=== PATIENT | female | born 1960 | race Caucasian/White ===

== ENCOUNTER 2016-09-07 12:31 | Emergency (ER) | payer OTHER ==
[2016-09-07 12:38] VITALS: BP 153/83; PULSE 80; TEMP 98.2; BMI 24.7
[2016-09-07] MEDS ORDERED: KETOROLAC TROMETHAMINE 60 MG/2 ML VIAL IM ONE (12:56)
[2016-09-07] MEDS ORDERED: KETOROLAC TROMETHAMINE 60 MG/2 ML VIAL ONE (13:13)
--- NOTE | 2016-09-07 13:18 | PDOC ---
History of Present Illness - General Chief Complaint: Back Pain Stated Complaint: PAIN Time Seen by Provider: 09/07/16 12:43 History Source: Patient Exam Limitations: No Limitations - History of Present Illness Initial Comments: 09/07/16 13:00 56 y/o female presents to the emergency room with complaints of low back pain radiating to her left leg for the past 5 days worsened with standing and relieved with rest. Chay. Sunday who prescribed her Flexeril after having a negative CT of her spine and leg. Patient has had minimal relief with the Flexeril and Motrin and decided come to [facility] [facility] emergency department for further evaluation. Patient has had low back pain in the past but not to this extent. 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 Patient denies any numbness tingling, weakness, abdominal pain, lower extremity edema, skin, discoloration. Occurred: reports: other Severity: reports: mild Pain Location: reports: lower extremity Method of Injury: Yes: unknown Modifying Factors: improves with: None Loss of Consciousness: no loss of consciousness Associated Symptoms (Fall): trouble walking Past History - Travel Traveled outside of the country in the last 30 days: No Close contact w/someone who was outside of country & ill: No - Past Medical History Allergies/Adverse Reactions: Allergies Allergy/AdvReac Type Severity Reaction Status Date / Time No Known Allergies Allergy Verified 09/07/16 12:33 Home Medications: Ambulatory Orders Atorvastatin Ca [Lipitor] 20 mg PO HS #30 tablet 11/11/15 Clopidogrel Bisulfate [Plavix -] 75 mg PO DAILY #30 tablet 11/11/15 Metoprolol Succinate [Toprol XL -] 50 mg PO DAILY #30 tab.sr.24h 11/11/15 Nitroglycerin Sublingual [Nitrostat -] 0.4 mg SL Q5M PRN #100 tab 11/11/15 Ibuprofen [Motrin -] 600 mg PO TID PRN #21 tablet 01/17/16 Methocarbamol [Robaxin -] 500 mg PO BID PRN #14 tablet 01/17/16 HTN: Yes - Surgical History Abdominal Surgery: Yes Appendectomy: Yes - Psycho/Social/Smoking Cessation Hx Anxiety: No Suicidal Ideation: No Smoking History: Never smoked Have you smoked in the past 12 months: No Number of Cigarettes Smoked Daily: 0 If you are a former smoker, when did you quit?: while still a teenager Hx Alcohol Use: Yes Drug/Substance Use Hx: No Substance Use Type: Alcohol Patient Lives Alone: No Review of Systems - Review of Systems Able to Perform ROS?: Yes Constitutional: No: Symptoms Reported HEENTM: No: Symptoms Reported Musculoskeletal: Yes: Back Pain, Muscle Pain (left posterior leg) Integumentary: No: Symptoms Reported Neurological: No: Symptoms reported Hematologic/Lymphatic: No: Symptoms Reported *Physical Exam - Vital Signs Last Vital Signs Temp Pulse Resp BP Pulse Ox 98.2 F 80 18 153/83 100 09/07/16 12:33 09/07/16 12:33 09/07/16 12:33 09/07/16 12:33 09/07/16 12:33 - Physical Exam General Appearance: Yes: Nourished, Appropriately Dressed. No: Apparent Distress Respiratory/Chest: positive: Lungs Clear, Normal Breath Sounds. negative: Respiratory Distress, Accessory Muscle Use Gastrointestinal/Abdominal: positive: Soft. negative: Tenderness Musculoskeletal: positive: Other (left sciatica tenderness). negative: Vertebral Tenderness (no midline tenderness) Extremity: positive: Normal Capillary Refill. negative: Pedal Edema Integumentary: positive: Normal Color, Warm, Moist Neurologic: positive: Motor Strength 5/5 (ambulatory) Medical Decision Making - Medical Decision Making 09/07/16 13:25 Patient will continue a low back pain with left-sided sciatica despite being on Flexeril and Motrin. Patient had no neural focal deficits but did have tenderness to the left sciatica without midline tenderness to the vertebral column. Patient with likely sciatica pain, unresolved. Patient will be given a dose of Toradol IM and then discharged home with Percocet along with the Flexeril. Patient also be given referral to an orthopedist. *DC/Admit/Observation/Transfer Diagnosis at time of Disposition: Sciatic nerve pain Qualifiers: Laterality: left Qualified Code(s): M54.32 - Sciatica, left side - Discharge Dispostion Disposition: HOME Condition at time of disposition: Good - Referrals Referrals: Neva Perez MD [Primary Care Provider] - Yuval Angulo MD [Staff Physician] - - Patient Instructions Printed Discharge Instructions: DI for Sciatica, Sciatica (Alternative Therapy) Additional Instructions: I recommend that you take percocet with flexeril but do not operate any heavy machinery while taking it. please follow-up with referred orthopedist. Please read over information enclosed in regards to sciatica.
== END 2016-09-07 13:35 | disposition home or self-care (01) ==
LOC: JERFT 12:31
PROC: 3E0233Z Introduction of Anti-inflammatory into Muscle, Percutaneous Approach (ICD-10-PCS; principal; 2016-09-07)
DX: M54.42 Lumbago with sciatica, left side (principal); I10 Essential (primary) hypertension
CPT/HCPCS: 99281-25

== ENCOUNTER 2018-11-12 12:25 | Emergency (ER) | payer OTHER ==
[2018-11-12 12:32] VITALS: BP 157/82; PULSE 67; TEMP 98.3; BMI 25.3
[2018-11-12] MEDS ORDERED: CYCLOBENZAPRINE HCL 10 MG TABLET (FP) PO ONE (13:46)
[2018-11-12] MEDS ORDERED: KETOROLAC TROMETHAMINE 60 MG/2 ML VIAL IM ONE (13:46)
[2018-11-12] MEDS ORDERED: KETOROLAC TROMETHAMINE 60 MG/2 ML VIAL ONE (14:02)
[2018-11-12] MEDS ORDERED: CYCLOBENZAPRINE HCL 10 MG TABLET (FP) ONE (14:02)
--- NOTE | 2018-11-12 14:32 | PDOC ---
History of Present Illness - General Chief Complaint: Back Pain Stated Complaint: BACK PAIN Time Seen by Provider: 11/12/18 13:05 History Source: Patient Exam Limitations: No Limitations - History of Present Illness Initial Comments: 11/12/18 14:38 58 y/o female presents to the ED with c/o rt trapezius aching discomfort x 3 days worse with movement. Pt denies chest pain., rash, sob, abd pain, fever, cough, headache, or dizziness. Is this a multiple visit Asthma Patient?: No Associated Symptoms: reports: other (right back pain) Past History - Travel Traveled outside of the country in the last 30 days: No Close contact w/someone who was outside of country & ill: No - Past Medical History Allergies/Adverse Reactions: Allergies Allergy/AdvReac Type Severity Reaction Status Date / Time No Known Allergies Allergy Verified 11/12/18 12:33 Home Medications: Ambulatory Orders Cyclobenzaprine HCl [Flexeril -] 5 mg PO TID PRN #12 tablet 11/12/18 Ibuprofen [Motrin -] 600 mg PO TID PRN #21 tablet 11/12/18 Lisinopril [Prinivil -] 40 mg PO DAILY 11/12/18 COPD: No HTN: Yes - Surgical History Abdominal Surgery: Yes Appendectomy: Yes Cardiac Surgery: Yes (CARDIAC CATH) - Immunization History Immunization Up to Date: Yes - Suicide/Smoking/Psychosocial Hx Smoking History: Never smoked Have you smoked in the past 12 months: No Number of Cigarettes Smoked Daily: 0 If you are a former smoker, when did you quit?: while still a teenager Information on smoking cessation initiated: No Hx Alcohol Use: No Drug/Substance Use Hx: No Substance Use Type: Alcohol Patient Lives Alone: No Lives with/in: spouse/SO Review of Systems - Review of Systems Able to Perform ROS?: Yes Constitutional: No: Symptoms Reported Cardiac (ROS): No: Symptoms Reported ABD/GI: No: Symptoms Reported : No: Symptoms Reported Musculoskeletal: Yes: Back Pain Integumentary: No: Symptoms Reported Neurological: No: Symptoms reported *Physical Exam - Vital Signs Last Vital Signs Temp Pulse Resp BP Pulse Ox 98.3 F 67 17 157/82 97 11/12/18 12:27 11/12/18 12:27 11/12/18 12:27 11/12/18 12:27 11/12/18 12:27 - Physical Exam General Appearance: Yes: Nourished, Appropriately Dressed. No: Apparent Distress HEENT: negative: Pale Conjunctivae Neck: positive: Supple, Tender lateral (right trapezius) Respiratory/Chest: positive: Lungs Clear, Normal Breath Sounds. negative: Respiratory Distress, Accessory Muscle Use Cardiovascular: positive: Regular Rhythm, Regular Rate. negative: Murmur Gastrointestinal/Abdominal: positive: Soft. negative: Tenderness Musculoskeletal: positive: Other (right trapezius ). negative: Vertebral Tenderness Extremity: positive: Normal Inspection Integumentary: positive: Normal Color, Warm, Moist Neurologic: positive: Normal Mood/Affect, Motor Strength 5/5 (ambulatory) ED Treatment Course - RADIOLOGY Radiology Studies Ordered: Category Date Time Status CHEST - PA [RAD] Stat Radiology 11/12/18 13:46 Completed - Medications Given in the ED: ED Medications Discontinued Medications Generic Name Dose Route Start Last Admin Trade Name Freq PRN Reason Stop Dose Admin Cyclobenzaprine HCl 5 mg 11/12/18 13:46 11/12/18 14:06 Flexeril - PO 11/12/18 13:47 5 mg ONCE ONE Administration Ketorolac Tromethamine 60 mg 11/12/18 13:46 11/12/18 14:06 Toradol Injection - IM 11/12/18 13:47 60 mg ONCE ONE Administration Medical Decision Making - Medical Decision Making 11/12/18 14:05 CC: rt sided back pain x 3 days worse with movement. Pt denies chest pain, sob, or dizziness, Pt denies abd pain Exam: Rt trapezius tenderness Plan: flexeril, toradol. and chest xray 11/12/18 14:38 Cxr -. pt feeling better. sent home with meds *DC/Admit/Observation/Transfer Diagnosis at time of Disposition: Back pain - Discharge Dispostion Disposition: HOME Condition at time of disposition: Improved - Prescriptions Prescriptions: Cyclobenzaprine HCl [Flexeril -] 5 mg PO TID PRN #12 tablet PRN Reason: Back Pain Ibuprofen [Motrin -] 600 mg PO TID PRN #21 tablet PRN Reason: Pain - Referrals Referrals: Neva Perez MD [Primary Care Provider] - - Patient Instructions Printed Discharge Instructions: DI for Thoracic Back Pain Additional Instructions: Please take medication as needed for pain. Please avoid movements which trigger your discomfort. - Post Discharge Activity
--- NOTE | 2018-11-12 16:29 | EKG ---
Test Reason : Blood Pressure : / mmHG Vent. Rate : 064 BPM Atrial Rate : 064 BPM P-R Int : 126 ms QRS Dur : 084 ms QT Int : 436 ms P-R-T Axes : 029 036 040 degrees QTc Int : 449 ms NORMAL SINUS RHYTHM SEPTAL INFARCT , AGE UNDETERMINED ABNORMAL ECG WHEN COMPARED WITH ECG OF 11-NOV-2015 15:27, SEPTAL INFARCT IS NOW PRESENT Confirmed by Lio Villegas ([id number]) on 11/12/2018 4:28:34 PM Referred By: Confirmed By:Lio Villegas
== END 2018-11-12 15:05 | disposition home or self-care (01) ==
LOC: JER 12:25
PROC: 3E0233Z Introduction of Anti-inflammatory into Muscle, Percutaneous Approach (ICD-10-PCS; principal; 2018-11-12)
DX: M54.6 Pain in thoracic spine (principal)
CPT/HCPCS: 71045-TC-FY; 93005; 93010; 99281-25

== ENCOUNTER 2019-02-21 12:23 | Emergency (ER) | payer OTHER ==
[2019-02-21 12:28] VITALS: BMI 26.4
--- NOTE | 2019-02-21 12:59 | PDOC ---
History of Present Illness - General Chief Complaint: Cold Symptoms Stated Complaint: flu Symptoms Time Seen by Provider: 02/21/19 12:40 History Source: Patient - History of Present Illness Initial Comments: 02/21/19 13:36 58-year-old female complaining of cough and fever for the last 5 days. Denies nausea, vomiting, diarrhea, abdominal pain. Denies flu vaccine this season. Npast medical history of hypertension, cardiac history and stent 3 years ago 02/21/19 14:13 Past History - Past Medical History Allergies/Adverse Reactions: Allergies Allergy/AdvReac Type Severity Reaction Status Date / Time No Known Allergies Allergy Verified 02/21/19 12:28 Home Medications: Ambulatory Orders Cyclobenzaprine HCl [Flexeril -] 5 mg PO TID PRN #12 tablet 11/12/18 Ibuprofen [Motrin -] 600 mg PO TID PRN #21 tablet 11/12/18 Lisinopril [Prinivil -] 40 mg PO DAILY 11/12/18 Benzonatate [Tessalon Pearls -] 100 mg PO TID PRN #21 capsule 02/21/19 Ibuprofen 400 mg PO BID PRN #20 tablet 02/21/19 Sodium Chloride/Sodium Bicarb [Nasa Mist Saline [place]] 1 ml NS QID #1 spray COPD: No HTN: Yes - Surgical History Abdominal Surgery: Yes Appendectomy: Yes Cardiac Surgery: Yes (CARDIAC CATH) - Immunization History Immunization Up to Date: Yes - Psycho Social/Smoking Cessation Hx Smoking History: Never smoked Have you smoked in the past 12 months: No Number of Cigarettes Smoked Daily: 0 If you are a former smoker, when did you quit?: while still a teenager Hx Alcohol Use: No Drug/Substance Use Hx: No Substance Use Type: Alcohol Review of Systems - Review of Systems Able to Perform ROS?: Yes Is the patient limited Lithuanian proficient: No *Physical Exam - Vital Signs Last Vital Signs Temp Pulse Resp BP Pulse Ox 98.7 F 78 18 173/90 H 100 02/21/19 12:25 02/21/19 12:25 02/21/19 12:25 02/21/19 12:25 02/21/19 12:25 - Physical Exam General Appearance: Yes: Appropriately Dressed HEENT: positive: Pharynx Normal, Nasal Congestion Respiratory/Chest: positive: Lungs Clear, Normal Breath Sounds Cardiovascular: positive: Regular Rhythm, Regular Rate Extremity: positive: Normal Capillary Refill, Normal Inspection, Normal Range of Motion Integumentary: positive: Normal Color, Dry, Warm Neurologic: positive: Fully Oriented, Alert, Normal Mood/Affect Medical Decision Making - Medical Decision Making 02/21/19 13:53 FLu like symptoms P: supportive care 02/21/19 14:18 all d/c instructions and strict return precautions reviewed with patient via [place] interpreter Discharge - Discharge Information Problems reviewed: Yes Clinical Impression/Diagnosis: Flu-like symptoms, Cough Disposition: HOME - Additional Discharge Information Prescriptions: Benzonatate [Tessalon Pearls -] 100 mg PO TID PRN #21 capsule PRN Reason: Cough Ibuprofen 400 mg PO BID PRN #20 tablet PRN Reason: Pain Sodium Chloride/Sodium Bicarb [Nasa Mist Saline [place]] 1 ml NS QID #1 spray - Follow up/Referral - Patient Discharge Instructions Patient Printed Discharge Instructions: DI for Common Cold Additional Instructions: Drink plenty of fluids. It is likely that you have the flu. Since you have been having symptoms for 5 days medication for flu does not really help. 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 Return to the emergency room if symptoms worsen. Beber mucho lquido. Es probable que tenga gripe. Dado que arora tenido sntomas sonia 5 graves, los medicamentos para la gripe realmente no ayudan. Puede probar algunos de los medicamentos de venta nick, incluidos Mucinex, TheraFlu eTC Administre Tylenol cada 4 horas segn sea necesario para la fiebre. Administre ibuprofeno y luego cada 6 horas segn sea necesario para la fiebre. Ludwin un seguimiento con martinez pediatra lo antes posible. Regrese a la janna de emergencias si los sntomas empeoran. - Post Discharge Activity Work/Back to School Note: Back to Work
[2019-02-21] MEDS ORDERED: ACETAMINOPHEN 500 MG TABLET (FP) PO ONE (13:05)
[2019-02-21] MEDS ORDERED: SODIUM CHLORIDE FOR INHALATION 3 ML VIAL.NEB IH ONE (13:05)
[2019-02-21] MEDS ORDERED: ACETAMINOPHEN 325 MG TABLET (FP) ONE ×2 (13:34→13:36)
[2019-02-21 14:19] VITALS: BP 164/98; PULSE 67; TEMP 98.1
== END 2019-02-21 14:23 | disposition home or self-care (01) ==
LOC: JERFT 12:23
PROC: 3E0F7GC Introduction of Other Therapeutic Substance into Respiratory Tract, Via Natural or Artificial Opening (ICD-10-PCS; principal; 2019-02-21)
DX: J11.1 Influenza due to unidentified influenza virus with other respiratory manifestations (principal); I25.10 Atherosclerotic heart disease of native coronary artery without angina pectoris; I10 Essential (primary) hypertension; Z95.5 Presence of coronary angioplasty implant and graft
CPT/HCPCS: 71046-TC-FY; 94640; 99281-25

== ENCOUNTER 2022-08-15 04:39 | Day surgery (SDC) | payer OTHER ==
[2022-08-10 14:09] VITALS: BMI 24.7
[2022-08-15 09:21] VITALS: TEMP 97
[2022-08-15 09:38] VITALS: BP 108/65; PULSE 62; RESP 18
== END 2022-08-15 09:55 | disposition home or self-care (01) ==
LOC: JASU-ENDO 04:39
PROVIDERS: ATTEND Student in an Organized Health Care Education/Training Program
PROC: 0DB68ZX Excision of Stomach, Via Natural or Artificial Opening Endoscopic, Diagnostic (ICD-10-PCS; 2022-08-15)
PROC: 0DB78ZX Excision of Stomach, Pylorus, Via Natural or Artificial Opening Endoscopic, Diagnostic (ICD-10-PCS; 2022-08-15)
PROC: 0DB68ZX Excision of Stomach, Via Natural or Artificial Opening Endoscopic, Diagnostic (ICD-10-PCS; principal; 2022-08-15 08:30)
DX: K29.50 Unspecified chronic gastritis without bleeding (principal); K31.7 Polyp of stomach and duodenum
CPT/HCPCS: 88305-TC; 88342-TC

== ENCOUNTER 2022-08-23 11:29 | Emergency (ER) | payer OTHER ==
[2022-08-23 11:41] VITALS: BP 133/74; PULSE 84; RESP 18; TEMP 99.4; BMI 27.0
[2022-08-23] MEDS ORDERED: KETOROLAC TROMETHAMINE 30 MG/1 ML VIAL ONE (12:27)
[2022-08-23] MEDS ORDERED: KETOROLAC TROMETHAMINE 30 MG/1 ML VIAL IM ONE (12:36)
== END 2022-08-23 13:47 | disposition home or self-care (01) ==
LOC: JERFT 11:29
PROC: 3E0233Z Introduction of Anti-inflammatory into Muscle, Percutaneous Approach (ICD-10-PCS; principal; 2022-08-23)
DX: R50.9 Fever, unspecified (principal); R53.83 Other fatigue; R51.9 Headache, unspecified; U07.1 COVID-19
CPT/HCPCS: 0241U-QW; 87651; 99284-25

== ENCOUNTER 2022-09-22 08:26 | Observation (INO) | payer OTHER ==
[2022-09-22 10:43] LABS: BASO % 0.8 % (0-2.0); HEMATOCRIT 38.4 % (32.4-45.2); HEMOGLOBIN 12.8 GM/dL (10.7-15.3); LYMPH % 29.5 % (8-40); MCH 29.9 pg (25.7-33.7); MCHC 33.4 g/dl (32.0-36.0); MEAN CELL VOLUME 89.7 fl (80-96); MEAN PLT VOLUME 10.6 fl (7.5-11.1); MONO % 7.8 % (3.8-10.2); NEUT % 59.9 % (42.8-82.8); PLATELET COUNT 189 10^3/uL (134-434); RBC 4.28 M/mm3 (3.60-5.2); RDW 14.2 % (11.6-15.6)
[2022-09-22 10:47] LABS: EPI CELLS 36 /uL (0-25.1); HYALINE CASTS 0 /uL (0-3.1); PH,URINE 6.5 (5.0-8.0); URINE APPEARANCE CLEAR; URINE BACTERIA 365 /uL (0-1359); URINE BILIRUBIN NEGATIVE (NEGATIVE); URINE COLOR YELLOW; URINE GLUCOSE (UA) NEGATIVE (NEGATIVE); URINE KETONE NEGATIVE (NEGATIVE); URINE LEUK ESTERASE 1+ (NEGATIVE); URINE NITRITE NEGATIVE (NEGATIVE); URINE PROTEIN NEGATIVE (NEGATIVE); URINE RBC 8 /uL (0-23.9); URINE UROBILINOGEN 0.2 mg/dL (0.2-1.0); URINE WBC 20 /uL (0-25.8)
[2022-09-22 11:03] LABS: POTASSIUM 4.5 mmol/L (3.5-5.1)
[2022-09-22 11:04] LABS: CALCIUM 9.4 mg/dL (8.5-10.1)
[2022-09-22 11:05] LABS: ALBUMIN 3.6 g/dl (3.4-5.0); BLOOD UREA NITROGEN 13.1 mg/dL (7-18)
[2022-09-22 11:08] LABS: CREATININE 0.7 mg/dL (0.55-1.3)
[2022-09-22 11:09] LABS: BILIRUBIN,TOTAL 0.3 mg/dL (0.2-1); TOT PROT 7.4 g/dl (6.4-8.2)
[2022-09-22] MEDS ORDERED: CEFTRIAXONE 1 GM/50 ML BAG ONE (11:38)
[2022-09-22 14:39] VITALS: BMI 26.9
[2022-09-22] MEDS: HEPARIN NA (PORCINE) 5,000 UNITS/ML 1ML VIAL SQ SCH (21:50)
[2022-09-22] MEDS: ACETAMINOPHEN 325 MG TABLET (FP) PO PRN (21:53)
[2022-09-23] MEDS: ACETAMINOPHEN 325 MG TABLET (FP) PO PRN (04:52)
[2022-09-23 08:21] LABS: BASO % 0.9 % (0-2.0); EOS % 2.8 % (0-4.5); HEMATOCRIT 37.1 % (32.4-45.2); HEMOGLOBIN 12.1 GM/dL (10.7-15.3); LYMPH % 35.5 % (8-40); MCH 29.8 pg (25.7-33.7); MCHC 32.5 g/dl (32.0-36.0); MEAN CELL VOLUME 91.8 fl (80-96); MEAN PLT VOLUME 11.7 fl (7.5-11.1); MONO % 8.5 % (3.8-10.2); NEUT % 52.3 % (42.8-82.8); PLATELET COUNT 176 10^3/uL (134-434); RBC 4.05 M/mm3 (3.60-5.2); RDW 14.1 % (11.6-15.6); WHITE BLOOD COUNT 5.6 K/mm3 (4.0-10.0)
[2022-09-23 08:38] LABS: POTASSIUM 4.1 mmol/L (3.5-5.1)
[2022-09-23 08:45] LABS: ALBUMIN 3.2 g/dl (3.4-5.0); BLOOD UREA NITROGEN 14.7 mg/dL (7-18)
[2022-09-23 08:46] LABS: CREATININE 0.6 mg/dL (0.55-1.3)
[2022-09-23 08:47] LABS: BILIRUBIN,TOTAL 0.6 mg/dL (0.2-1)
[2022-09-23 08:48] LABS: TOT PROT 6.6 g/dl (6.4-8.2)
[2022-09-23] MEDS: LOSARTAN POTASSIUM 50 MG TABLET PO SCH (09:18)
[2022-09-23] MEDS: PANTOPRAZOLE 40 MG TABLET PO SCH (09:18)
[2022-09-23] MEDS: ASPIRIN COATED 81 MG TABLET.EC PO SCH (09:18)
[2022-09-23] MEDS: HEPARIN NA (PORCINE) 5,000 UNITS/ML 1ML VIAL SQ SCH ×2 (09:18→22:36)
[2022-09-23] MEDS ORDERED: SODIUM CHLORIDE NASAL SPRAY 44 ML BOTTLE NS PRN (10:00)
[2022-09-23] MEDS ORDERED: CEFTRIAXONE 1 GM in DEXTROSE 5%-WATER - 50 ML IVPB SCH (10:00)
[2022-09-23 14:25] LABS: N-TERMINAL BNP 313.6 pg/ml (5-125)
[2022-09-24 09:26] VITALS: BP 124/68; PULSE 59; RESP 18; TEMP 98.8
[2022-09-24] MEDS: ASPIRIN COATED 81 MG TABLET.EC PO SCH (09:27)
[2022-09-24] MEDS: PANTOPRAZOLE 40 MG TABLET PO SCH (09:27)
[2022-09-24] MEDS: LOSARTAN POTASSIUM 50 MG TABLET PO SCH (09:27)
[2022-09-24] MEDS: HEPARIN NA (PORCINE) 5,000 UNITS/ML 1ML VIAL SQ SCH (09:27)
== END 2022-09-24 15:03 | disposition home or self-care (01) ==
LOC: JER 08:26 → JERBED 11:37 → J4W 13:25
PROVIDERS: ADMIT Internal Medicine; ATTEND Internal Medicine
PROC: 3E023GC Introduction of Other Therapeutic Substance into Muscle, Percutaneous Approach (ICD-10-PCS; principal; 2022-09-22)
PROC: 3E03329 Introduction of Other Anti-infective into Peripheral Vein, Percutaneous Approach (ICD-10-PCS; 2022-09-22)
DX: R55 Syncope and collapse (principal); R07.9 Chest pain, unspecified; F41.9 Anxiety disorder, unspecified; E78.5 Hyperlipidemia, unspecified; R01.1 Cardiac murmur, unspecified; I25.10 Atherosclerotic heart disease of native coronary artery without angina pectoris; Z95.5 Presence of coronary angioplasty implant and graft; Z87.891 Personal history of nicotine dependence; G47.00 Insomnia, unspecified
CPT/HCPCS: 36415; 71045-TC-FY; 80053; 80061; 81003; 83036; 83880; 84443; 84484; 85025; 87086; 93005; 93010; 93880-TC; 96365; 96372; 96375; 99285-25; G0378; J1644

== ENCOUNTER 2023-03-10 13:24 | Emergency (ER) | payer OTHER ==
[2023-03-10 13:29] VITALS: BP 145/77; PULSE 100; RESP 20; TEMP 100.1; BMI 27.3
[2023-03-10] MEDS ORDERED: ACETAMINOPHEN 500 MG TABLET (FP) PO ONE (15:21)
[2023-03-10] MEDS ORDERED: IBUPROFEN 400 MG TABLET (FP) PO ONE ×2 (15:22→15:48)
[2023-03-10] MEDS ORDERED: ACETAMINOPHEN 500 MG TABLET (FP) ONE (15:48)
== END 2023-03-10 16:02 | disposition home or self-care (01) ==
LOC: JERFT 13:24
DX: R05.9 Cough, unspecified (principal); R09.81 Nasal congestion; R09.89 Other specified symptoms and signs involving the circulatory and respiratory systems; R51.9 Headache, unspecified; R50.9 Fever, unspecified; M79.10 Myalgia, unspecified site; J34.89 Other specified disorders of nose and nasal sinuses; J39.2 Other diseases of pharynx; R00.0 Tachycardia, unspecified; J10.1 Influenza due to other identified influenza virus with other respiratory manifestations; Z20.822 Contact with and (suspected) exposure to COVID-19
CPT/HCPCS: 0241U-QW; 99283-25